=== PATIENT | female | born 1960 | race Caucasian/White ===

== ENCOUNTER 2018-01-21 07:23 | Emergency (ER) | payer BC ==
[~2018-01-21] VITALS: Ht 165.1 cm; Wt 81.3 kg
[2018-01-21] MEDS ORDERED: TETanus/Pertussis (Acell)/Diphther VAC/PF (Tdap-Adult) 0.5ml syringe IM ONE (07:50)
[2018-01-21] MEDS ORDERED: LIDOcaine 1.5% w/epinephrine 1:200,000 5ml ampul IJ ONE (07:50)
[2018-01-21 07:57] VITALS: BP 115/52
[2018-01-21] MEDS ORDERED: HYDR-3965 PO (08:26)
== END 2018-01-21 09:12 | disposition home or self-care (01) ==
LOC: ER 07:24
DX: S62.617A Displaced fracture of proximal phalanx of left little finger, initial encounter for closed fracture (principal); G89.29 Other chronic pain; Z79.899 Other long term (current) drug therapy; X58.XXXA Exposure to other specified factors, initial encounter; Y93.89 Activity, other specified; Y92.89 Other specified places as the place of occurrence of the external cause; Y99.8 Other external cause status
CPT/HCPCS: 26725; 73130; 90471; 90715; 99284; A4565; J3490

== ENCOUNTER 2018-01-26 11:01 | Outpatient (CLI) | payer BC ==
[~2018-01-26 11:01] MED LIST: HYDR-3965 PO
[2018-01-26 11:07] VITALS: BP 143/75
== END 2018-01-26 12:00 | disposition home or self-care (01) ==
LOC: ORTHO 11:01
PROVIDERS: ATTEND Nurse Practitioner Family
DX: S62.617A Displaced fracture of proximal phalanx of left little finger, initial encounter for closed fracture (principal); Z72.89 Other problems related to lifestyle; W01.198A Fall on same level from slipping, tripping and stumbling with subsequent striking against other object, initial encounter; Y93.89 Activity, other specified; Y92.89 Other specified places as the place of occurrence of the external cause; Y99.8 Other external cause status
CPT/HCPCS: 73130

== ENCOUNTER 2018-02-09 09:03 | Outpatient (CLI) | payer BC ==
[2018-02-09 09:00] VITALS: BP 111/64
== END 2018-02-09 09:41 | disposition home or self-care (01) ==
LOC: ORTHO 09:03
PROVIDERS: ATTEND Nurse Practitioner Family
DX: S62.617D Displaced fracture of proximal phalanx of left little finger, subsequent encounter for fracture with routine healing (principal); W01.0XXD Fall on same level from slipping, tripping and stumbling without subsequent striking against object, subsequent encounter
CPT/HCPCS: 73130; 99213